=== PATIENT | male | born 1960 | race African-American/Black ===

== ENCOUNTER 2024-05-07 00:38 | Emergency (ER) | payer MEDICAID ==
[~2024-05-07] VITALS: Ht 188 cm; Wt 103.0 kg
[2024-05-07 00:41] VITALS: BP 132/77; PULSE 80; RESP 16; TEMP 98; O2SAT 99
[2024-05-07 02:47] LABS: BASOPHILS % 0.5 % (0.0-2.0); DIFFERENTIAL COMMENT 0; EOSINOPHILS % 0.6 % (0.0-5.0); HEMATOCRIT. 45.7 % (42.0-52.0); HEMOGLOBIN. 14.8 g/dL (14.0-18.0); LYMPHOCYTES % 14.1 % (20.0-50.0); MEAN CORPUSCULAR HEMOGLOBIN 30.1 pg (28.0-32.0); MEAN CORPUSCULAR HGB CONC 32.3 g/dL (31.0-37.0); MEAN CORPUSCULAR VOLUME 92.9 fL (80.0-94.0); MEAN PLATELET VOLUME 9.9 fl (7.4-10.4); MONOCYTES % 6.5 % (2.0-8.0); NEUTROPHILS % 78.3 % (40.0-76.0); PLATELET 205 x1000/uL (130-400); RED BLOOD CELL COUNT 4.91 mill/uL (4.7-6.1); RED CELL DISTRIBUTION WIDTH 14.6 % (11.6-14.6); WHITE BLOOD COUNT 7.8 x1000/uL (4.5-11.0)
[2024-05-07 02:48] LABS: CHLORIDE 108 mEq/L (98-107); POTASSIUM 3.5 mEq/L (3.5-5.1); SODIUM 143 mEq/L (136-145)
[2024-05-07 02:49] LABS: CALCIUM 8.6 mg/dL (8.7-10.4); CARBON DIOXIDE 26 mEq/L (21-32)
[2024-05-07 02:54] LABS: CREATININE 1.1 mg/dL (0.6-1.3); GLUCOSE 101 mg/dL (70-105); UREA NITROGEN BLOOD 14 mg/dL (9-23)
[2024-05-07 02:55] LABS: ETHANOL BLOOD 235 mg/dL (<10); TROPONIN I HIGH SENSITIVITY 48 ng/L (3.0-53)
== END 2024-05-07 09:37 | disposition home or self-care (01) ==
LOC: ER 00:38
DX: G92.9 Unspecified toxic encephalopathy (principal); F10.10 Alcohol abuse, uncomplicated; Z68.29 Body mass index [BMI] 29.0-29.9, adult; Y90.7 Blood alcohol level of 200-239 mg/100 ml
CPT/HCPCS: 36415; 80048; 80320; 82962; 84484; 85025; 93005; 99284; G0480